=== PATIENT | male | born 1945 | race Caucasian/White ===

== ENCOUNTER 2016-08-26 15:58 | Outpatient (CLI) | payer MEDICARE, OTHER | END 2016-08-26 15:59 | disposition home or self-care (01) | DX: R06.2 Wheezing (principal); R06.00 Dyspnea, unspecified ==

== ENCOUNTER 2016-11-18 08:00 | Outpatient (CLI) | payer MEDICARE, OTHER | END 2016-11-18 08:01 | disposition home or self-care (01) | DX: R73.9 Hyperglycemia, unspecified (principal); E78.2 Mixed hyperlipidemia; E03.9 Hypothyroidism, unspecified; Z79.899 Other long term (current) drug therapy ==

== ENCOUNTER 2016-11-28 08:00 | Outpatient (CLI) | payer MEDICARE, OTHER ==
[2016-11-28 14:46] LABS: CHOL/HDL RATIO 5.5 (<5.0); CHOLESTEROL 187 mg/dL; HDL CHOLESTEROL 34 mg/dL; LDL/HDL RATIO 3.5 (<3.6); TRIGLYCERIDES 174 mg/dL; VLDL CHOLESTEROL 35 mg/dL
== END 2016-11-28 08:01 | disposition home or self-care (01) ==
LOC: LAB.N 08:00
PROVIDERS: ATTEND Physician Assistant Medical
DX: E78.2 Mixed hyperlipidemia (principal); Z72.89 Other problems related to lifestyle; Z79.899 Other long term (current) drug therapy
CPT/HCPCS: 36415; 80061; 86803

== ENCOUNTER 2017-02-09 07:37 | Outpatient (CLI) | payer MEDICARE, OTHER ==
[2017-02-09 13:50] LABS: HDL CHOLESTEROL 30 mg/dL; LDL CHOLESTEROL,DIRECT 92 mg/dL
== END 2017-02-09 07:38 | disposition home or self-care (01) ==
LOC: LAB.N 07:37
PROVIDERS: ATTEND Physician Assistant Medical
DX: E78.2 Mixed hyperlipidemia (principal)
CPT/HCPCS: 36415; 83718; 84450; 84460

== ENCOUNTER 2017-12-01 08:02 | Outpatient (CLI) | payer MEDICARE, OTHER ==
[2017-12-01 12:52] LABS: BASOPHILS # (AUTO) 0.1 10^3/uL (0.0-0.1); BASOPHILS % (AUTO) 1.7 %; EOSINOPHILS # (AUTO) 0.2 10^3/uL (0.0-0.7); EOSINOPHILS % (AUTO) 4.2 %; HGB - HEMOGLOBIN 14.8 g/dL (14.0-18.0); LYMPHOCYTES # (AUTO) 1.3 10^3/uL (1.5-3.5); LYMPHOCYTES % (AUTO) 34.4 %; MEAN CORPUSCULAR HEMOGLOBIN 31.4 pg (27.0-31.0); MEAN CORPUSCULAR HGB CONC 34.3 g/dL (32.0-36.0); MEAN CORPUSCULAR VOLUME 91.6 fL (80.0-94.0); MEAN PLATELET VOLUME 7.9 fL (7.4-11.4); MONOCYTES # (AUTO) 0.3 10^3/uL (0.0-1.0); MONOCYTES % (AUTO) 7.3 %; NEUTROPHILS # (AUTO) 1.9 10^3/uL (1.5-6.6); NEUTROPHILS % (AUTO) 52.4 %; PLT - PLATELET COUNT 193 10^3/uL (130-450); RED BLOOD COUNT 4.71 10^6/uL (4.70-6.10); RED CELL DISTRIBUTION WIDTH 12.7 % (12.0-15.0); WHITE BLOOD COUNT 3.7 x10^3/uL (4.8-10.8)
[2017-12-01 12:59] LABS: ALBUMIN 4.3 g/dL (3.2-5.5); ALBUMIN/GLOBULIN RATIO 1.7 (1.0-2.2); ALKALINE PHOSPHATASE 58 IU/L (42-121); ALT ALANINE AMINOTRANSFERASE 36 IU/L (10-60); AST ASPARTATE AMINOTRANSFERASE 39 IU/L (10-42); BILIRUBIN,TOTAL 1.1 mg/dL (0.2-1.0); BUN - BLOOD UREA NITROGEN 14 mg/dL (6-20); CALCIUM 8.8 mg/dL (8.5-10.3); CARBON DIOXIDE - CO2 27 mmol/L (21-32); CHLORIDE 103 mmol/L (101-111); CHOL/HDL RATIO 4.6 (<5.0); CHOLESTEROL 142 mg/dL; CREATININE 1.1 mg/dL (0.6-1.2); GFR - MDRD 66 (>89); GLUCOSE 110 mg/dL (70-100); HDL CHOLESTEROL 31 mg/dL; LDL CHOLESTEROL,CALCULATED 90 mg/dL; LDL/HDL RATIO 2.9 (<3.6); SODIUM 137 mmol/L (135-145); TOTAL PROTEIN 6.9 g/dL (6.7-8.2); VLDL CHOLESTEROL 21 mg/dL
== END 2017-12-01 08:03 ==
LOC: LAB.N 08:02
PROVIDERS: ATTEND Physician Assistant Medical
DX: Z79.899 Other long term (current) drug therapy (principal); E03.9 Hypothyroidism, unspecified; Z12.5 Encounter for screening for malignant neoplasm of prostate
CPT/HCPCS: 36415; 80053; 80061; 84443; 85025; G0103; 83721; 84153

== ENCOUNTER 2018-01-28 08:00 | Outpatient (CLI) | payer MEDICARE, OTHER ==
[2018-01-28 13:07] LABS: ALT ALANINE AMINOTRANSFERASE 42 IU/L (10-60); AST ASPARTATE AMINOTRANSFERASE 52 IU/L (10-42); CHOLESTEROL 154 mg/dL; HDL CHOLESTEROL 31 mg/dL; LDL CHOLESTEROL,CALCULATED 83 mg/dL; LDL/HDL RATIO 2.7 (<3.6); VLDL CHOLESTEROL 40 mg/dL
[2018-01-28 13:34] LABS: HB2 TOTAL 16.4 g/dL; HEMOGLOBIN A1C 0.63 g/dL; HEMOGLOBIN A1C % 5.7 % (4.6-6.2)
== END 2018-01-28 08:01 | disposition home or self-care (01) ==
LOC: LAB.N 08:00
PROVIDERS: ATTEND Physician Assistant Medical
DX: R73.9 Hyperglycemia, unspecified (principal); Z79.899 Other long term (current) drug therapy; E78.2 Mixed hyperlipidemia
CPT/HCPCS: 36415; 80061; 83036; 83721; 84450; 84460

== ENCOUNTER 2018-07-08 07:49 | Outpatient (CLI) | payer MEDICARE, OTHER ==
[2018-07-08 12:31] LABS: ALBUMIN 4.4 g/dL (3.2-5.5); ALKALINE PHOSPHATASE 65 IU/L (42-121); ALT ALANINE AMINOTRANSFERASE 22 IU/L (10-60); AST ASPARTATE AMINOTRANSFERASE 24 IU/L (10-42); BILIRUBIN,DIRECT 0.2 mg/dL (0.1-0.5); BILIRUBIN,TOTAL 1.5 mg/dL (0.2-1.0); CHOL/HDL RATIO 4.5 (<5.0); CHOLESTEROL 157 mg/dL; HDL CHOLESTEROL 35 mg/dL; LDL CHOLESTEROL,CALCULATED 88 mg/dL; LDL/HDL RATIO 2.5 (<3.6); TOTAL PROTEIN 6.8 g/dL (6.7-8.2); VLDL CHOLESTEROL 34 mg/dL
== END 2018-07-08 23:59 | disposition home or self-care (01) ==
LOC: LAB.N 07:49
PROVIDERS: ATTEND Physician Assistant Medical
DX: Z79.899 Other long term (current) drug therapy (principal); E78.2 Mixed hyperlipidemia
CPT/HCPCS: 36415; 80061; 80076; 83721

== ENCOUNTER 2018-09-14 08:00 | Outpatient (CLI) | payer MEDICARE, OTHER ==
[2018-09-14 16:04] LABS: CALCIUM 8.7 mg/dL (8.5-10.3); CREATININE 1.2 mg/dL (0.6-1.2)
== END 2018-09-14 23:59 | disposition home or self-care (01) ==
LOC: LAB.N 08:00
PROVIDERS: ATTEND Specialist
DX: M23.304 Other meniscus derangements, unspecified medial meniscus, left knee (principal)
CPT/HCPCS: 36415; 80048

== ENCOUNTER 2018-09-20 08:06 | Outpatient (CLI) | payer MEDICARE, OTHER ==
--- NOTE | 2018-09-20 12:04 | MRI Report ---
Reason: L MEDIAL KNEE PAIN Procedure Date: 09/20/2018 Accession Number: [id number] / [id number] Procedure: MRI - Knee LT W/O CPT Code: FULL RESULT: EXAM: LEFT KNEE MRI WITHOUT CONTRAST EXAM DATE: 09/20/2018 09:03 AM. CLINICAL HISTORY: Left medial knee pain. Running injury. COMPARISON: None. TECHNIQUE: Multiplanar, multisequence T1-weighted and fluid-sensitive sequences of the knee without contrast. Other: None. FINDINGS: Bones: Fragmentation and bony hypertrophy tibial tuberosity. Fluid signal or increased signal at the tibial tuberosity synchondrosis (image 10 series 501). Articular Cartilage: Focal moderate chondromalacia medial patellar facet. Mild chondromalacia medial femoral condyle. Medial Meniscus: Oblique tear medial meniscus body with extension to the inferior articular surface. Lateral Meniscus: The lateral meniscus is intact. Cruciate Ligaments: The anterior and posterior cruciate ligaments are intact. Collateral Ligaments: The medial collateral and lateral collateral ligamentous structures are intact. Tendons: The quadriceps, patellar, semimembranosus, and popliteus tendons are unremarkable. Musculature: No edema or fatty atrophy. Other: No effusion. No popliteal cyst. No loose bodies. The subcutaneous tissues and fat pads are unremarkable. IMPRESSION: 1. Oblique tear medial meniscus body with extension to the inferior articular surface. 2. 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 RADIA MUSCULOSKELETAL RADIOLOGY SECTION
== END 2018-09-20 08:07 | disposition home or self-care (01) ==
LOC: DI 08:06
PROVIDERS: ATTEND Specialist
DX: S83.242A Other tear of medial meniscus, current injury, left knee, initial encounter (principal); M92.52 Juvenile osteochondrosis of tibia tubercle

== ENCOUNTER 2022-01-22 12:46 | Outpatient (CLI) | payer MEDICARE, OTHER ==
--- NOTE | 2022-01-22 16:55 | CT Report ---
PROCEDURE: Abdomen/Pelvis WO INDICATIONS: LEFT LOWER QUADRANT PAIN TECHNIQUE: Noncontrast 5 mm thick sections acquired from the diaphragms to the symphysis. 5 mm coronal and sagi ttal reformats were then performed. For radiation dose reduction, the following was used: automated exposure control, adjustment of mA and/or kV according to patient size. COMPARISON: CT dated 06/07/2013 FINDINGS: Image quality: Excellent. ABDOMEN: Lung bases: Lung bases are clear. Heart size is normal. Solid organs: Liver and spleen are normal in size. Gallbladder is within normal limits Pancreas is normal in contours. No adrenal nodules. Kidneys are normal in size, without hydronephrosis or neph rolithiasis. Peritoneum and bowel: Unenhanced bowel loops demonstrate normal wall thickness and caliber. Diverti culosis of the sigmoid colon. No evidence of acute diverticulitis. No free fluid or air. Nodes and vessels: No retroperitoneal or mesenteric adenopathy by size criteria. Aorta and inferior vena cava are normal in caliber. Miscellaneous: No ventral hernias. PELVIS: Genitourinary: Bladder wall thickness is normal. Miscellaneous: No inguinal hernias or adenopathy. Bones: No suspicious bony lesions. No vertebral body compression fractures. IMPRESSION: 1. Negative noncontrast evaluation of the abdomen and pelvis. No explanation for left lower quadrant pain. 2. No evidence of urinary tract calcification, nor obstruction. 3. Normal appendix. 4. Sigmoid diverticulosis with no evidence of diverticulitis. Reviewed by: Aden Arias MD on 01/22/2022 4:54 PM PDT Approved by: Aden Arias MD on 01/22/2022 4:54 PM PDT Station ID: [id number]
== END 2022-01-22 12:47 | disposition home or self-care (01) ==
LOC: DI 12:46
PROVIDERS: ATTEND Physician Assistant
DX: R10.32 Left lower quadrant pain (principal); K57.30 Diverticulosis of large intestine without perforation or abscess without bleeding

== ENCOUNTER 2024-02-18 07:39 | Day surgery (SDC) | payer MEDICARE, OTHER ==
[2024-02-18] MEDS: LACTATED RINGERS 1,000 ML IV ONE ×2 (07:56→09:31)
[2024-02-18] MEDS: PROPARACAINE 0.5% OPHTH DROPS 15 ML ONE (08:00)
[2024-02-18] MEDS: KETOROLAC TROMETHAMINE 0.5% OPHTH DROPS 5 ML ONE (08:00)
[2024-02-18] MEDS: CYCLOPENTOLATE 1% OPHTH DROPS 2 ML ONE (08:05)
[2024-02-18] MEDS: PHENYLEPHRINE 2.5% OPHTH 2 ML DROPS ONE (08:05)
--- NOTE | 2024-02-18 08:49 | ANESTHESIA ---
Pre-Anesthesia VS, & Labs - Diagnosis L cataract - Procedure L PhacoIOL Vital Signs: Temp Pulse Resp BP Pulse Ox O2 Flow Rate 36.2 C L 60 12 163/81 H 100 02/18/24 08:04 02/18/24 08:04 02/18/24 08:04 02/18/24 08:04 02/18/24 08:04 Height: 5 ft 7 in Weight (kg): 85.1 kg Body Mass Index: 29.3 BMI Classification: Overweight - NPO >8 hours Home Medications and Allergies Levothyroxine [Synthroid] 88 mcg PO QDAC 02/18/16 Pravastatin [Pravachol] 10 mg PO HS 02/18/16 Allergies/Adverse Reactions: Allergies Allergy/AdvReac Type Severity Reaction Status Date / Time No Known Drug Allergies Allergy Verified 02/17/24 13:13 Anes History & Medical History - Anesthetic History Anesthesia Complications: reports: No previous complications Family history of Anesthesia Complications: Denies Family history of Malignant Hyperthermia: Denies - Medical History Cardiovascular: reports: High cholesterol Pulmonary: reports: None Gastrointestinal: reports: None Urinary: reports: None Musculoskeletal: reports: None Endocrine/Autoimmune: reports: HyPOthyroidism Skin: reports: None Smoking Status: Never smoker - Surgical History General: reports: Colonoscopy Eyes Ears Nose Throat (EENT): reports: Tonsil/Adenoidectomy Orthopedic: reports: Other Exam General: Alert, Oriented x3, Cooperative Dental: WNL Mouth Openin Fingerbreadth Neck Mobility: Normal Mallampati classification: II Thyromental Distance: 4-6 cm Respiratory: Lungs clear Cardiovascular: Regular rate Plan Anesthesia Type: MAC Consent for Procedure(s) Verified and Reviewed: Yes Code Status: Attempt Resuscitation ASA classification: 2-Mild systemic disease Is this case an emergency?: No
[2024-02-18] MEDS ORDERED: MIDAZOLAM 2 MG/2 ML VIAL ONE (08:58)
[2024-02-18] MEDS ORDERED: TIMOLOL 0.5% OPHTH DROPS ONE (09:00)
[2024-02-18] MEDS ORDERED: TRIAMCIN/MOXIFLOX OPHTHALMIC 0.6 ML VIAL IO ONE (09:00)
[2024-02-18] MEDS ORDERED: BRIMONIDINE 0.2% OPHTH DROPS 5 ML ONE (09:00)
[2024-02-18] MEDS ORDERED: BSS/LIDOCAINE/EPINEPHRINE 1 ML VIAL ONE (09:00)
[2024-02-18] MEDS ORDERED: EPINEPHrine 1 MG/ML AMP ONE (09:00)
[2024-02-18] MEDS: PROPARACAINE 0.5% OPHTH DROPS 15 ML LEFTEYE ONE (09:24)
[2024-02-18] MEDS: BRIMONIDINE 0.2% OPHTH DROPS 5 ML OPTH ONE (09:24)
[2024-02-18] MEDS: TRIAMCIN/MOXIFLOX OPHTHALMIC 0.6 ML VIAL IO ONE (09:24)
[2024-02-18] MEDS: EPINEPHrine 1 MG/ML AMP IR ONE (09:24)
[2024-02-18] MEDS: BSS/LIDOCAINE/EPINEPHRINE 1 ML SYRINGE IO ONE (09:24)
[2024-02-18] MEDS: VANCOMYCIN OPHTH (TOPICAL) 10 MG/ML SYRINGE TOP ONE (09:24)
[2024-02-18] MEDS: TIMOLOL 0.5% OPHTH DROPS OPTH ONE (09:24)
--- NOTE | 2024-02-18 09:38 | OPERATIVE REPORT ---
Operative Report - Other Other Information/Narrative: Date of Surgery: 02/18/24 Preop Dx: Visually significant cataract left eye. Cataract surgery was performed in the right eye on [id number]. Postop Dx: Same Procedure: Phacoemulsification with posterior chamber intraocular lens implant left eye Surgeon: Dr. 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 Best corrected visual acuity was 20/30 with glare to 20/400 vision in the left eye. Indications for surgery were: - Overall decrease in vision - Difficulty seeing words on a computer screen - Difficulty reading - Difficulty seeing words, closed captions, or game scores on TV - Difficulty seeing street signs - Difficulty driving in low light or at night - Difficulty driving at night because of headlights from other vehicles - Difficulty with glare or bright lights in any situation - Difficulty tracking a golf ball - Decreased acuity with firearms The patient was consented at length concerning the risks and benefits of cataract surgery after which the patient expressed a desire to proceed with surgery. Operative Procedure: The patient was taken into OR#3 and placed under monitored anesthesia care. A surgical time-out was conducted confirming correct patient, correct procedure, and correct surgical site. The patient was given topical anesthesia and then prepped and draped in the usual sterile fashion. The eye was entered at the 6 and 3 oclock positions. Intracameral Shugarcaine was injected into the anterior chamber followed by a dispersive viscoelastic. A continuous-tear curvilinear capsulorhexis was performed. The nucleus was hydrodissected and phacoemulsified. The cortex was evacuated using automated in fusion and aspiration. A cohesive viscoelastic was injected into the capsular bag and a 17.5 diopter intraocular lens was inserted into the bag. Infusion and aspiration were used to evacuate the viscoelastic materials from the eye. The wounds were hydrated and the eye inflated to physiologic pressure using balanced salt solution. Approximately 0.25ml of a mixture of triamcinolone and moxifloxacin was injected trans-sclerally into the vitreous in the inferotemporal quadrant using a 30 gauge cannula. An additional 0.25ml of a mixture of triamcinolone and moxifloxacin was injected subconjunctivally in the superior quadrant for infection and inflammation prophylaxis. Wound integrity was checked with Weck-Claudette sponges. The patient was taken from the operating room in good condition and given post-op instructions.
--- NOTE | 2024-02-18 09:39 | ANESTHESIA POST OP EVALUATION ---
Anesthesia Post Eval - Post Anesthesia Eval Vitals: Last Vital Signs Temp 36.2 C L 02/18/24 09:32 Pulse 56 L 02/18/24 09:35 Resp 14 02/18/24 09:35 BP 146/74 H 02/18/24 09:35 Pulse Ox 99 02/18/24 09:35 O2 Flow Rate CV Function Including HR & BP: Stable Pain Control: Satisfactory Nausea & Vomiting: Negative Mental Status: Baseline Respiratory Status: Airway Patent Hydration Status: Satisfactory Anesthesia Complications: None
[2024-02-18 10:04] VITALS: BP 127/80; O2SAT 98
== END 2024-02-18 07:40 | disposition home or self-care (01) ==
LOC: SDS 07:39
PROVIDERS: ATTEND Ophthalmology
DX: H25.812 Combined forms of age-related cataract, left eye (principal); Z98.41 Cataract extraction status, right eye; E03.9 Hypothyroidism, unspecified
CPT/HCPCS: 66984; A9270; J3490; J7120